=== PATIENT | female | born 2000 | race Caucasian/White ===

== ENCOUNTER 2022-03-10 08:54 | Outpatient (CLI) | payer BC ==
[2022-03-10 10:09] LABS: BHCG - Serum Negative (NEGATIVE); Pregs Control Background? CLEAR/WHITE (CLR/WHITE); Pregs Control Bar Appear? YES (CONTROL BAR)
[2022-03-10 20:29] LABS: SARS-CoV-2 PCR by NAA Not Detected (NotDetected)
== END 2022-03-10 08:55 | disposition home or self-care (01) ==
LOC: LABBT 08:54
PROVIDERS: ATTEND Otolaryngology Plastic Surgery within the Head & Neck
DX: Z01.812 Encounter for preprocedural laboratory examination (principal); S02.2XXA Fracture of nasal bones, initial encounter for closed fracture; S09.93XA Unspecified injury of face, initial encounter; J34.2 Deviated nasal septum; J34.89 Other specified disorders of nose and nasal sinuses; J34.3 Hypertrophy of nasal turbinates; R09.81 Nasal congestion; Z20.822 Contact with and (suspected) exposure to COVID-19
CPT/HCPCS: 84703; 85014; U0003; U0005

== ENCOUNTER 2022-03-12 07:00 | Day surgery (SDC) | payer BC ==
[2022-03-10 11:42] VITALS: BMI 20.7
[2022-03-12] MEDS ORDERED: AFRIN NASAL MIST 15 ML BOT ONE ×2 (07:36→08:43)
[2022-03-12] MEDS ORDERED: Lidocaine 1% MPF 2 ML VIAL ONE (07:56)
[2022-03-12] MEDS ORDERED: Midazolam HCl 2 mg/2 ml Vial ONE ×2 (08:15→08:20)
[2022-03-12] MEDS ORDERED: Scopolamine 1.5 mg/72 hour Patch ONE (08:15)
[2022-03-12] MEDS ORDERED: HYDROmorphone 0.5 MG/0.5 ML SYRINGE ONE (08:20)
[2022-03-12] MEDS ORDERED: Fentanyl 250 MCG/5 ML VIAL ONE (08:20)
[2022-03-12] MEDS ORDERED: Lidocaine 4% Topical Sol 50 ML BOT ONE (08:21)
[2022-03-12] MEDS ORDERED: fentaNYL Citrate/PF 100 MCG/2 ML SYRINGE ONE (08:21)
[2022-03-12] MEDS ORDERED: Lidocaine 1% w/Epinephrine 1:100K 20 ML VIAL ONE ×2 (08:43→08:59)
[2022-03-12] MEDS ORDERED: PROPOFOL 200 MG/20 ML VIAL ONE (08:55)
[2022-03-12] MEDS ORDERED: Dexamethasone 20 MG/5 ML VIAL ONE (08:55)
[2022-03-12] MEDS ORDERED: Lidocaine 1% PF 5 ML VIAL ONE (08:55)
[2022-03-12] MEDS ORDERED: Ondansetron PF 4 MG/2 ML Vial ONE (08:55)
[2022-03-12] MEDS ORDERED: Hydrocodone-Acetamin 15 ML UDCUP ONE (10:33)
== END 2022-03-12 11:11 | disposition home or self-care (01) ==
LOC: SDC 07:00
PROVIDERS: ATTEND Otolaryngology Plastic Surgery within the Head & Neck
PROC: 09SM0ZZ Reposition Nasal Septum, Open Approach (ICD-10-PCS; principal; 2022-03-12)
PROC: 0NSBXZZ Reposition Nasal Bone, External Approach (ICD-10-PCS; principal; 2022-03-12)
PROC: 09TL0ZZ Resection of Nasal Turbinate, Open Approach (ICD-10-PCS; principal; 2022-03-12)
DX: S02.2XXA Fracture of nasal bones, initial encounter for closed fracture (principal); J34.2 Deviated nasal septum; J34.3 Hypertrophy of nasal turbinates; J34.89 Other specified disorders of nose and nasal sinuses; Z87.891 Personal history of nicotine dependence; W50.0XXA Accidental hit or strike by another person, initial encounter; Y93.45 Activity, cheerleading
CPT/HCPCS: J1100; J1170; J2250; J2405; J2704; J3010